=== PATIENT | female | born 1945 | race Caucasian/White ===

== ENCOUNTER 2020-04-04 14:33 | Outpatient (CLI) | payer MEDICARE, SELFPAY ==
--- NOTE | 2020-04-04 14:45 | ECHO_ITS ---
Patient Info Name: Angi Pichardo Age: 74 years : 1945 Gender: Female Ht: 63 in Wt: 217 lbs BSA: 2.14 m2 HR: 100 bpm BP: 164 / 88 mmHg Heart Rhythm: Sinus Rhythm Technical Quality: Good Exam Date: 04/04/2020 3:25 PM Exam Location: [facility] Pulmonary Patient Status: Outpatient Admit Date: 04/04/2020 Staff Ordering Physician: Heather Julio Chalk Extruding Machine Operator: Janene Sampson RDCS Attending Provider: Heather Julio Referring Physician: Nori SHIELDS; Exam Type: CA echo doppler color flow Study Info Complete two-dimensional, color flow and Doppler transthoracic echocardiogram is performed. Summary 1. Left ventricular systolic function is normal, estimated at >70%. 2. There is no increased left ventricular wall thickness. 3. The left ventricular diastolic function is grade I diastolic dysfunction. 4. There is mild tricuspid valve regurgitation. 5. No pulmonary hypertension, estimated pulmonary arterial systolic pressure is 31 mmHg. 6. There is trace mitral valve regurgitation. 7. There is no aortic valve stenosis. Left Ventricle Left ventricular chamber dimension is normal. Left ventricular systolic function is normal, estimated at >70%. There is no increased left ventricular wall thickness. The left ventricular diastolic function is grade I diastolic dysfunction. Right Ventricle Right ventricular chamber dimension is normal. Right ventricular systolic function is normal. Left Atria Left atrial chamber dimension is normal. Right Atria Right atrial chamber dimension is normal. Aortic Valve The aortic valve is not well visualized. There is no aortic valve stenosis. There is no aortic valve regurgitation. Pulmonic Valve The pulmonic valve is not well visualized. There is mild pulmonic regurgitation. Mitral Valve The mitral valve has normal leaflets. There is trace mitral valve regurgitation. The mitral valve annulus is mildly calcified. Tricuspid Valve The tricuspid valve leaflets are normal. There is mild tricuspid valve regurgitation. No pulmonary hypertension, estimated pulmonary arterial systolic pressure is 31 mmHg. Pericardium/Pleural The pericardium appears normal. There is trivial pericardial effusion. Inferior Vena Cava Normal inferior vena cava with >50% collapse upon inspiration consistent with normal right atrial pressure, 5 mmHg. Aorta The aortic root size at the sinus of Valsalva is normal. There is mild aortic atherosclerosis. Left Ventricular Outflow Tract Name Value Normal LVOT 2D LVOT Diameter 2.0 cm LVOT Doppler LVOT Peak Gradient 5 mmHg LVOT Mean Gradient 4 mmHg LVOT VTI 24 cm LVOT VTI/AV VTI Ratio 0.7 LVOT Stroke Volume 75 ml LVOT CO 18.2 l/min LVOT CI 8.5 l/min/m2 Pulmonic Valve Name Value Normal -
--- NOTE | 2020-04-09 12:25 | WPDHOLTEREM ---
Holter/Event Monitor Holter/Event Monitor Date of procedure: 04/04/20 Procedure Type: 48 hour holter monitor Indications: Tachycardia Conclusion: 1. 48 hour holter monitor on 04/04/20. 2. Predominant rhythm is sinus rhythm. HR range 53-140 bpm; average HR 77 bpm. 3. There are 593 premature supraventricular complexes, 33 supraventricular couplets and 9 supraventricular bigeminy. There are 18 runs of atrial tachycardia, fastest at 174 bpm and longest lasting 8 beats. 4. There are 358 premature ventricular complexes. No ventricular tachycardia. 5. First degree AV block. No significant pauses greater than 2 seconds. 6. No symptoms available for correlation.
== END 2020-04-04 14:34 | disposition home or self-care (01) ==
PROVIDERS: PCP Internal Medicine; Visit Provider Clinical Nurse Specialist
DX: R00.0 Tachycardia, unspecified (principal); I44.0 Atrioventricular block, first degree
CPT/HCPCS: 93225; 93226; 93306

== ENCOUNTER → 2020-05-02 12:20 | Outpatient (CLI) | payer MEDICARE, SELFPAY ==
--- NOTE | ~2020-05-02 | XR_ITS ---
EXAMINATION: XR chest 2V EXAM DATE: 05/02/2020 13:00 INDICATION: R06.02 - Shortness of breath. TECHNIQUE: Portable AP frontal chest x-ray was obtained. There is no prior study for comparison. FINDINGS: The lungs are clear. There are no pleural effusions. The cardiomediastinal silhouette is within normal limits. There is no pneumothorax suspected. The bones and soft tissues are unremarkab le. IMPRESSION: No acute cardiopulmonary findings. Reviewed, dictated and finalized at location A. TACLE TRUER
== END ==
PROVIDERS: PCP Internal Medicine; Visit Provider Clinical Nurse Specialist
DX: R06.02 Shortness of breath (principal)
CPT/HCPCS: 71046

== ENCOUNTER 2020-05-31 09:55 | Outpatient (CLI) | payer MEDICARE, SELFPAY ==
--- NOTE | ~2020-05-31 | NM_ITS ---
EXAMINATION: NM jazmin stress w perfusion DATE: 05/31/2020 15:29 INDICATION: Heart palpitations TECHNIQUE: Rest images were obtained following intravenous administration of 9.8 mCi Tc99m tetrofosmi n (Myoview). The patient was infused intravenously with Lexiscan (Regadenoson). Then, 2 mCi Tc99m tet rofosmin (Myoview) was administered intravenously, and stress images were obtained. Data was reconstr ucted into short axis and horizontal and vertical long axis SPECT images. Gated SPECT images were als o obtained. COMPARISON: None. FINDINGS: There is no definite reversible or fixed perfusion abnormality to suggest ischemia or infar ction. There is normal left ventricular chamber size, wall motion and ejection fraction. Left ventr icular ejection fraction measures >70%. IMPRESSION: 1. Normal myocardial perfusion at rest and during stress. 2. Left ventricular ejection fraction measuring +70%. Reviewed, dictated and finalized at location A. ITURE REPRODUCER
--- NOTE | 2020-05-31 10:00 | EST_ITS ---
Patient Info Name: Angi Pichardo Age: 74 years : 1945 Gender: Female Ht: 63 in Wt: 210 lbs BSA: 2.10 m2 Exam Date: 05/31/2020 10:48 AM Exam Location: [facility] Stress Patient Status: Outpatient Admit Date: 05/31/2020 Staff Ordering Physician: Gil Melendez DO Attending Provider: Gil Melendez DO Exercise Technologist: Naty Caputo RDCS Exercise Physician: Gil Melendez DO Exam Type: CA stress jazmin w NM Study Info Indications R00.2 - Palpitations A regadenoson stress test was performed. Summary 1. 1. Negative lexiscan stress test for ischemic ST changes by ECG criteria. 2. 2. Baseline hypertension. 3. 3. Nuclear scan to follow and will be reported separately. Please correlate with it. 4. 4. Patient informed of the above results. Protocol: Lexiscan Stress ECG Details Stage: REST Duration (min): 1 min : 40 sec HR (bpm): 66 SBP (mmHg): 159 DBP (mmHg): 82 Stage: REST Duration (min): 16 min : 10 sec HR (bpm): 69 SBP (mmHg): 159 DBP (mmHg): 82 Stage: STAGE 1 Duration (min): 1 min : 0 sec HR (bpm): 100 SBP (mmHg): 176 DBP (mmHg): 66 Stage: RECOVERY Duration (min): 1 min : 0 sec HR (bpm): 100 SBP (mmHg): 165 DBP (mmHg): 68 Stage: RECOVERY Duration (min): 2 min : 0 sec HR (bpm): 89 SBP (mmHg): 165 DBP (mmHg): 68 Stage: RECOVERY Duration (min): 3 min : 0 sec HR (bpm): 83 SBP (mmHg): 135 DBP (mmHg): 68 Stage: RECOVERY Duration (min): 4 min : 0 sec HR (bpm): 100 SBP (mmHg): 135 DBP (mmHg): 68 Stage: RECOVERY Duration (min): 4 min : 51 sec HR (bpm): 89 SBP (mmHg): 160 DBP (mmHg): 68 Rest HR: 69 bpm Peak HR: 120 bpm Rest Sys BP: 159 mmHg Peak Sys BP: 176 mmHg Max Pred HR: 147 bpm % Max Pred HR: 82 % Target HR: 125 bpm Max RPP: 21,120 bpm*mmHg Termination Reason: Completed protocol Cardiac Symptoms: Shortness of breath, Generalized weakness Total Time: 1 min : 0 sec Rest Limon BP: 82 mmHg Peak Limon BP: 66 mmHg Total Dose: 0.4 mg Resting ECG Sinus rhythm. Stress ECG No ST changes. Arrhythmias None. Report Signatures
== END 2020-05-31 09:56 | disposition home or self-care (01) ==
PROVIDERS: PCP Internal Medicine; Visit Provider Internal Medicine Cardiovascular Disease
DX: R00.2 Palpitations (principal); R06.00 Dyspnea, unspecified
CPT/HCPCS: 78452; 93017; A9502; J2785